=== PATIENT | male | born 1945 | race Caucasian/White ===

== ENCOUNTER → 2016-09-11 | Outpatient (CLI) | payer BC ==
[~2016-09-11] MED LIST: ASPI-586 PO; HYDR-3811 PO; LISI5TAB14 PO; METO25TA60 PO; PRED20TA PO
== END ==
LOC: LAB 15:09
PROVIDERS: ATTEND Internal Medicine
DX: I10 Essential (primary) hypertension (principal)
CPT/HCPCS: 36415; 82565; 84520

== ENCOUNTER → 2016-09-16 | Outpatient (CLI) | payer BC ==
--- NOTE | 2016-09-16 13:02 | Diagnostic Imaging Report ---
PROCEDURE: MRI lumbar spine with and without contrast. TECHNIQUE: Multiplanar, multisequence MRI of the lumbar spine was performed with and without contrast. INDICATION: Low back pain. History of previous fusion and laminectomy. COMPARISON: 09/05/2014. FINDINGS: Bilateral pedicle screws and rods are present at L5-S1. There continues to be grade 1 anterolisthesis of L5 on S1. Posterior laminectomy is noted with good decompression. There continues to be considerable degenerative disc disease at the L2-L3 level with near complete loss of disc space height. Hypertrophic endplate changes are seen causing bilateral foraminal encroachment more severe on the right. This is estimated to be moderate on the right though does not involve the upper portion of the foramen. No central canal stenosis. The remaining lumbar disc shows normal contour. The conus medullaris and cauda equina appear normal. The surrounding soft tissues are normal. Following IV contrast injection, there is no evidence of abnormal enhancement along the lumbar region. No findings to suggest scarring around the nerve root sleeve. The paraspinal soft tissues appear normal. IMPRESSION: 1. Postoperative changes with posterior fusion and laminectomy L5-S1. Grade 1 anterolisthesis again noted. 2. Moderate severe degenerative disc disease L2-L3 with slight progression of hypertrophic changes of the endplates since previous exam which are causing slight increased encroachment upon the right neural foramen. Dictated by: Dictated on workstation # [id number]
== END ==
LOC: RAD 11:24
PROVIDERS: ATTEND Internal Medicine
DX: M54.16 Radiculopathy, lumbar region (principal); M51.37 Other intervertebral disc degeneration, lumbosacral region
CPT/HCPCS: 72158; A9579